=== PATIENT | female | born 1990 | race Caucasian/White ===

== ENCOUNTER 2016-08-04 21:36 | Emergency (ER) | payer OTHER ==
[2016-08-04] MEDS ORDERED: PROBIOTIC1 EAC9 (23:02)
[2016-08-04] MEDS ORDERED: PRENATAL-U CAPS1 CAP PO (23:02)
[2016-08-04] MEDS ORDERED: COLACE100 M1 PO (23:02)
[2016-08-04] MEDS ORDERED: VITAMIN D400 UNI3 PO (23:02)
[2016-08-05 01:43] LABS: BASO % 0.7 % (0-2); EOS % 4.8 % (0-7); EOSINOPHIL ABSOLUTE COUNT 0.3 tho/cmm (0.0-0.7); HCT-HEMATOCRIT 38.3 % (34.0-49.0); HGB-HEMOGLOBIN 12.6 gm/dl (12.0-15.5); IMMATURE GRANULOCYTES ABSOLUTE 0.02 tho/cmm (0-0.03); IMMATURE GRANULOCYTES PERCENT 0.4 % (0-0.3); LYMPH % 37.6 % (20-45); MCH (MEAN CORPUSCULAR HGB) 33.7 pg (28.0-32.0); MCHC MEAN CORPUSCULAR HGB CONC 32.9 % (32.0-36.0); MCV (MEAN CELL VOLUME) 102.4 fl (82.0-96.0); MEAN PLATELET VOLUME 10.7 cmc (9.4-12.4); MONO % 8.5 % (0-12); MONOCYTE ABSOLUTE COUNT 0.5 tho/cmm (0.0-1.2); NEUTROPHIL ABSOLUTE COUNT 2.6 tho/cmm (1.6-8.0); NEUTROPHIL-AUTOMATED 2.6 tho/cmm (1.6-8.0); PLATELET COUNT 202 tho/cmm (150-450); RED BLOOD COUNT 3.74 mil/cmm (4.00-5.20); RED CELL DISTRIBUTION WIDTH 12.4 % (12.4-16.4); WHITE BLOOD COUNT 5.4 tho/cmm (4.0-10.0)
[2016-08-05 01:52] LABS: PREGNANCY-SERUM NEGATIVE (NEGATIVE)
[2016-08-05 01:59] LABS: ANION GAP 11 mmol/L (0-20); BLOOD UREA NITROGEN 14 mg/dl (6-24); CALCIUM 9.1 mg/dl (8.5-10.5); CARBON DIOXIDE-VENOUS 29 mmol/L (22-32); CHLORIDE 105 mmol/l (96-110); CREATININE 0.69 mg/dl (0.50-1.10); GLUCOSE 83 mg/dL (70-110); SODIUM 141 mmol/L (135-145); eGFR VALUE FOR BLACK >90 mL/Min
[2016-08-05 02:23] LABS: POTASSIUM 3.9 mmol/L (3.7-5.1)
[2016-08-05 03:35] LABS: URINE BILIRUBIN NEGATIVE (NEG); URINE BLOOD NEGATIVE (NEG); URINE GLUCOSE (UA) NEGATIVE (NEG); URINE KETONE NEGATIVE (NEG); URINE LEUKOCYTE ESTERASE POSITIVE (NEG); URINE NITRITE NEGATIVE (NEG); URINE PROTEIN NEGATIVE (NEG); URINE SPECIFIC GRAVITY 1.005 (1.003-1.030)
[2016-08-05 03:36] LABS: URINE APPEARANCE CLEAR; URINE COLOR PALE YELLOW
[2016-08-05 03:45] LABS: URINE RBC 0 /[HPF] (0-5)
[2016-08-05] MEDS ORDERED: NORCO 5-325 TA1 EACH PO (04:25)
== END 2016-08-05 04:35 ==
LOC: EDMED 21:36
PROVIDERS: Physician Assistant
DX: L03.315 Cellulitis of perineum (principal)
CPT/HCPCS: J2270; J2405; J7030; Q9967